=== PATIENT | male | born 1980 | race Caucasian/White ===

== ENCOUNTER 2019-04-17 06:28 | Emergency (ER) | payer OTHER ==
[~2019-04-17] VITALS: Ht 185.4 cm; Wt 93.0 kg
[2019-04-17 06:44] VITALS: BP 134/86
[2019-04-17] MEDS ORDERED: MESA1.2T PO (07:07)
--- NOTE | 2019-04-17 07:18 | ER.PDOC ---
General Chief Complaint: Nosebleed Stated Complaint: NOSE BLEED Time seen by MD: 07:00 Source: patient Exam Limitations: no limitations History of Present Illness Initial Comments one hour right sided nose bleeding, pt did not pince nose, he does have allergies and has nosebleeds previously, patient had no trauma to nose, he has no fever and is not on a blood thinner, pt stuck a paper towel up the right nostril and come into er. Location: right nare Severity: mild Allergies: Coded Allergies: No Known Allergies (Unverified , 04/17/19) Home Meds Reported Medications Mesalamine (LIALDA) 1.2 Gm Tablet.dr, 2 TAB PO QD for 30 Days, #60 TAB 0 Refills 04/17/19 Constitutional: denies fever Ears: denies pain Nose: epistaxis Mouth: denies pain Throat: denies pain Respiratory: denies cough, denies shortness of breath Cardiovascular: denies chest pain Musculoskeletal: denies neck pain Skin: denies rash Past Medical History Medical History: other Surgical History: no surgical history Social History Alcohol Use: occassionally Drug Use: none Physical Exam General Appearance: alert, no distress Nose: no active bleeding Head/Neck: atraumatic Eyes/Ears: eyes nml inspection Mouth: lips, gums nml, pharynx nml NEURO/PSYCH: oriented X3, mood/effect nml Respiratory: no resp. distress, lungs clear CVS: reg. rate & rhythm Abdomen: non-tender Comments patient had a paper towel right nares that was removed in er, there is no active bleeding r nares and no active bleeding post pharynx. Results/Orders Results/Orders Vital Signs Date Time Temp Pulse Resp B/P (MAP) Pulse Ox O2 Delivery O2 Flow Rate FiO2 04/17/19 06:44 98.1 95 18 95 04/17/19 06:44 98.1 95 18 04/17/19 06:44 98.1 95 18 134/86 (102) 95 Room Air Progress Progress reexamination r nares and post pharynx 15 minutes after initial exam shows no active bleeding and no active bleeding post pharynx. Departure Time of Disposition: 07:17 Disposition: 01 HOME, SELF-CARE Impression: Primary Impression: Epistaxis Condition: Stable Patient Instructions: Nosebleed Referrals: PCP,UNKNOWN (PCP) PRIMARY CARE PROVIDER KEEGAN REMY MD Additional Instructions: return for any worsening symptoms Duration or Time Spent with Pa: 10 WANDY HYATT MD Apr 17, 2019 07:18
--- NOTE | 2019-04-17 07:28 | NUR ---
patient arrived this morning for nosebleed that began at 0600 today. Patient has history of ulcerative colitis. No known drug allergies. Patient is wearing a loop recorder.
[2019-04-17 07:39] VITALS: BP 132/75
== END 2019-04-17 07:33 | disposition home or self-care (01) ==
LOC: ER 06:28
DX: R04.0 Epistaxis (principal); Z79.899 Other long term (current) drug therapy
CPT/HCPCS: 99281